=== PATIENT | female | born 1995 | race Caucasian/White ===

== ENCOUNTER 2023-11-26 07:28 | Inpatient (IN) ==
[2023-11-26] MEDS ORDERED: LIDOCAINE 1% LOCAL 20 ML VIAL INFIL PRN (07:56)
[2023-11-26] MEDS ORDERED: OXYTOCIN 30 UNITS/NSS 30 UNITS/500 ML BAG IV PRN ×2 (07:56→15:21)
[2023-11-26] MEDS ORDERED: CALCIUM CARBONATE 500 MG CHEWABLE TAB PO PRN (07:56)
[2023-11-26] MEDS: LACTATED RINGER'S 1,000 ML IV PRN (08:20)
--- NOTE | 2023-11-26 08:24 | Labor Progress Brief Note ---
Date of Service November 26, 2023 Subjective 28yo @ 41w0d for IOL due to postdates. [place] placed last night fell out at 3am. Rd uncomfortably now, breathing through. No ROM, minimal VB, good FM. Assessment & Plan (1) Post-term , 40-42 weeks of gestation: Plan: IOL, start pitocin, epidural on request (pros/cons/r/b/a discussed this AM with pt and FOB), anticipate of baby Jorge "Salvatore" Admission and Anticipated Discharge Date Admission Date: November 26, 2023 Physical Exam Genitourinary: /-1 FHT Cat 1 [place] not tracing well but clinically breathing through ~Q3-4m during discussion in room. Results & Data Vital Signs (Past 12 Hours) Vital Signs Pulse BP 11/26/23 07:38 97 H 139/87 Coding Level of Care Code None Diagnoses Post-term , 40-42 weeks of gestation O48.0
[2023-11-26 08:26] LABS: Hematocrit (blood only) 40.4 % (37.0-47.0); Hemoglobin 13.6 g/dl (12.0-16.0); Mean Corpuscular Hemoglobin 30.5 pg (25.0-34.0); Mean Corpuscular Hgb Conc 33.7 g/dL (32.0-36.0); Mean Corpuscular Volume 90.6 fL (80.0-100.0); Mean Platelet Volume 10.2 fL (9.4-12.4); Platelet Count 271 K/uL (130-400); RDW Coefficient of Variation 13.2 % (11.5-14.5); RDW Standard Deviation 43.3 fL (36.4-46.3); Red Blood Count 4.46 M/uL (4.20-5.40); White Blood Count 13.32 K/ul (4.8-10.8)
[2023-11-26] MEDS ORDERED: ONDANSETRON INJ 2 MG/ML 2 ML VIAL IV PRN (08:29)
[2023-11-26] MEDS: LIDOCAINE 2%/EPINEPHRINE 1:200,000 20 ML PF ONE (09:53)
[2023-11-26] MEDS: BUPIVACAINE 0.25% PF 30 ML VIAL ONE (09:53)
[2023-11-26] MEDS: fentANYL 2 MCG/ML BUPIVacaine 0.125%-NSS 100ML BAG ONE (09:55)
[2023-11-26] MEDS: SODIUM CHLORIDE 0.9% PF INJ 10 ML VIAL ONE (09:59)
[2023-11-26] MEDS: fentaNYL citrate PF 100 MCG/2 ML VIAL ONE (09:59)
[2023-11-26] MEDS: OXYTOCIN 30 UNITS/NSS 30 UNITS/500 ML BAG IV PRN (10:05)
--- NOTE | 2023-11-26 10:06 | Anesthesiology Consultation ---
Date of Service November 26, 2023 Assessment & Plan Chart Review Chart Review: Acceptable Risk for Labor Epidural Consults Requested none History Height/Weight Height: 5 ft 2 in Weight: 98.43 kg Allergies Allergy/AdvReac Type Severity Reaction Status Date / Time No Known Allergies Allergy Verified 11/25/23 20:16 Medications Home Medications Medication Instructions Recorded Confirmed Last Taken [id number] 1 tab PO DAILY 08/29/23 11/26/23 11/25/23 07:00 [ Plus] breast pump #1 ea 10/17/23 11/22/23 Unknown Tylenol 1,000 mg PO Q6H PRN Pain 11/26/23 11/26/23 11/25/23 22:00 Active Medications Generic Name Dose Route Start Last Admin Trade Name Freq PRN Reason Stop Dose Admin Lactated Ringer's 1,000 mls @ 125 mls/hr 11/26/23 07:56 11/26/23 08:20 Lr IV 11/28/23 07:55 999 mls/hr .Q8H PRN Administration L&D Protocol Protocol Past Medical History Medical History (Updated 11/26/23 @ 08:24 by Sita Cowan MD) Uterine fibroid seen at 20 and 28 weeks ultrasound patient reports "right where you would cut for a c/section" Varicella vaccination IBS (irritable bowel syndrome) Panic attacks Past Family History Family History Sister Asthma Seizure disorder during Mother Hypertension Father Hypertension Grandfather (Maternal) Cancer skin cancer Grandfather (Paternal) Cancer Skin cancer Denies family history of Ovarian cancer Breast cancer Colorectal cancer Past Surgical History Surgical History S/P wisdom tooth extraction Social History Smoking Status: Never smoker Do You Dip or Chew Tobacco: No Hx Alcohol Use: No Hx Substance Use: No substance use type: does not use Physical Exam Vital Signs Last Vital Signs Temp 36.7 C 11/26/23 08:00 Pulse 107 H 11/26/23 10:02 Resp 20 11/26/23 08:00 BP 111/58 L 11/26/23 09:58 Pulse Ox 95 11/26/23 10:02 Testing Laboratory Results 11/26/23 08:06
[2023-11-26] MEDS ORDERED: fentANYL 2 MCG/ML BUPIVacaine 0.125%-NSS 100ML BAG EPI PRN (10:07)
[2023-11-26] MEDS ORDERED: fentaNYL citrate PF 100 MCG/2 ML VIAL EPI PRN (10:07)
[2023-11-26] MEDS ORDERED: ROPIVACAINE 0.5% PF 5 MG/ML 20 ML VIAL EPI PRN (10:07)
[2023-11-26] MEDS ORDERED: LIDOCAINE 2% MPF LOCAL 5 ML VIAL EPI PRN (10:07)
[2023-11-26] MEDS ORDERED: NALBUPHINE HCL INJ 10 MG/ML AMP IV PRN (10:07)
[2023-11-26] MEDS ORDERED: diphenhydrAMINE 50 MG/ML VIAL IV PRN (10:07)
[2023-11-26] MEDS ORDERED: ePHEDrine sulfate 50 MG/ML AMP IV PRN (10:07)
[2023-11-26] MEDS ORDERED: BUPIVACAINE 0.25% PF 30 ML VIAL EPI PRN (10:07)
[2023-11-26] MEDS ORDERED: NALOXONE HCL 1 MG in SODIUM CHLORIDE 0.9% 1,000 ML IV PRN (10:07)
[2023-11-26] MEDS ORDERED: NALOXONE HCL 0.4 MG/1 ML VIAL/CARP IV PRN (10:07)
[2023-11-26] MEDS ORDERED: SODIUM CHLORIDE 0.9% PF INJ 10 ML VIAL EPI PRN (10:07)
[2023-11-26] MEDS: LIDOCAINE 2%/EPINEPHRINE 1:200,000 20 ML PF EPI STA (10:26)
[2023-11-26] MEDS: BUPIVACAINE 0.25% PF 30 ML VIAL EPI STA (10:26)
[2023-11-26] MEDS: fentaNYL citrate PF 100 MCG/2 ML VIAL EPI STA (10:26)
[2023-11-26] MEDS: SODIUM CHLORIDE 0.9% PF INJ 10 ML VIAL EPI STA (10:26)
--- NOTE | 2023-11-26 10:46 | Labor Progress Brief Note ---
Date of Service November 26, 2023 Subjective Comfortable with epidural. Assessment & Plan Admission and Anticipated Discharge Date Admission Date: November 26, 2023 Physical Exam Genitourinary: 4/100/-1 AROM clear fluid Vertex well applied [place] Q2-3 FHT Cat 1 Results & Data Vital Signs (Past 12 Hours) Vital Signs Temp Pulse Resp BP Pulse Ox 11/26/23 10:42 96 11/26/23 10:42 88 11/26/23 10:41 94 11/26/23 10:41 100 H 11/26/23 10:37 94 11/26/23 10:37 107 H 11/26/23 10:36 94 11/26/23 10:36 105 H 11/26/23 10:32 94 11/26/23 10:32 95 H 11/26/23 10:29 96 H 11/26/23 10:29 117/59 L 11/26/23 10:28 94 11/26/23 10:28 95 H 11/26/23 10:27 94 11/26/23 10:27 91 H 11/26/23 10:22 95 11/26/23 10:22 118 H 11/26/23 10:17 95 11/26/23 10:17 114 H 11/26/23 10:14 102 H 11/26/23 10:14 116/61 11/26/23 10:12 95 11/26/23 10:12 101 H 11/26/23 10:07 95 11/26/23 10:07 98 H 11/26/23 10:02 95 11/26/23 10:02 107 H 11/26/23 09:58 112 H 11/26/23 09:58 111/58 L 11/26/23 09:57 95 11/26/23 09:57 114 H 11/26/23 09:54 109 H 11/26/23 09:54 102/57 L 11/26/23 09:54 109 H 11/26/23 09:54 120/57 L 11/26/23 09:52 95 11/26/23 09:52 118 H 11/26/23 09:49 123 H 11/26/23 09:49 123/73 11/26/23 09:47 97 11/26/23 09:47 110 H 11/26/23 09:43 88 11/26/23 09:43 133/85 11/26/23 09:42 96 11/26/23 09:42 103 H 11/26/23 09:37 96 11/26/23 09:37 100 H 11/26/23 09:32 95 11/26/23 09:32 91 H 11/26/23 09:29 94 11/26/23 09:29 91 H 11/26/23 09:27 96 11/26/23 09:27 99 H 11/26/23 09:22 95 11/26/23 09:22 98 H 11/26/23 09:17 95 11/26/23 09:17 108 H 11/26/23 09:12 96 11/26/23 09:12 95 H 11/26/23 08:00 98.1 F 97 H 20 139/87 11/26/23 07:38 97 H 139/87 11/26/23 07:37 20 11/26/23 07:37 98.1 F 20 Coding Level of Care Code None
[2023-11-26] MEDS: NURSING L&D Epidural Breakthrough Pain Update ONE (12:25)
--- NOTE | 2023-11-26 14:21 | Labor Progress Brief Note ---
Date of Service November 26, 2023 Subjective Feeling pain / pressure despite epidural. Assessment & Plan Admission and Anticipated Discharge Date Admission Date: November 26, 2023 Physical Exam Genitourinary: 10/100/+1 with bloody show FHT Cat 1 [place] Q2min Plan: Begin second stage. Results & Data Vital Signs (Past 12 Hours) Vital Signs Temp Pulse Resp BP Pulse Ox 11/26/23 14:17 96 11/26/23 14:17 125 H 11/26/23 14:14 86 11/26/23 14:14 132/81 11/26/23 14:12 96 11/26/23 14:12 89 11/26/23 14:07 96 11/26/23 14:07 90 11/26/23 14:02 96 11/26/23 14:02 91 H 11/26/23 14:00 92 H 11/26/23 14:00 147/92 H 11/26/23 13:57 96 11/26/23 13:57 95 H 11/26/23 13:52 96 11/26/23 13:52 91 H 11/26/23 13:47 96 11/26/23 13:47 90 11/26/23 13:45 89 11/26/23 13:45 145/88 H 11/26/23 13:42 96 11/26/23 13:42 90 11/26/23 13:37 95 11/26/23 13:37 99 H 11/26/23 13:32 96 11/26/23 13:32 94 H 11/26/23 13:29 88 11/26/23 13:29 156/87 H 11/26/23 13:27 95 11/26/23 13:27 99 H 11/26/23 13:24 92 H 11/26/23 13:24 139/70 11/26/23 13:22 95 11/26/23 13:22 98 H 11/26/23 13:17 95 11/26/23 13:17 89 11/26/23 13:14 110 H 11/26/23 13:14 165/81 H 11/26/23 13:12 96 11/26/23 13:12 85 11/26/23 13:07 94 11/26/23 13:07 103 H 11/26/23 13:02 95 11/26/23 13:02 100 H 11/26/23 12:59 92 H 11/26/23 12:59 130/75 11/26/23 12:57 94 11/26/23 12:57 87 11/26/23 12:52 95 11/26/23 12:52 98 H 11/26/23 12:47 95 11/26/23 12:47 97 H 11/26/23 12:44 108 H 11/26/23 12:44 130/69 11/26/23 12:42 95 11/26/23 12:42 90 11/26/23 12:37 94 11/26/23 12:37 98 H 11/26/23 12:32 94 11/26/23 12:32 96 H 11/26/23 12:30 90 11/26/23 12:30 123/71 11/26/23 12:27 94 11/26/23 12:27 90 11/26/23 12:22 95 11/26/23 12:22 93 H 11/26/23 12:17 94 11/26/23 12:17 110 H 11/26/23 12:14 86 11/26/23 12:14 131/80 11/26/23 12:13 18 11/26/23 12:13 98.1 F 18 11/26/23 12:12 94 11/26/23 12:12 94 H 11/26/23 12:07 92 11/26/23 12:07 95 H 11/26/23 12:05 94 11/26/23 12:05 98 H 11/26/23 12:02 93 11/26/23 12:02 86 11/26/23 11:59 85 11/26/23 11:59 121/79 11/26/23 11:57 91 11/26/23 11:57 89 11/26/23 11:52 92 11/26/23 11:52 90 11/26/23 11:47 91 11/26/23 11:47 103 H 11/26/23 11:45 86 11/26/23 11:45 121/74 11/26/23 11:42 93 11/26/23 11:42 86 11/26/23 11:37 93 11/26/23 11:37 88 11/26/23 11:32 92 11/26/23 11:32 85 11/26/23 11:31 94 11/26/23 11:31 83 11/26/23 11:30 79 11/26/23 11:30 125/62 11/26/23 11:27 93 11/26/23 11:27 90 11/26/23 11:22 93 11/26/23 11:22 89 11/26/23 11:17 93 11/26/23 11:17 94 H 11/26/23 11:14 90 11/26/23 11:14 116/59 L 11/26/23 11:12 93 11/26/23 11:12 97 H 11/26/23 11:11 93 11/26/23 11:11 99 H 11/26/23 11:07 93 11/26/23 11:07 82 11/26/23 11:02 94 11/26/23 11:02 96 H 11/26/23 11:00 93 11/26/23 11:00 99 H 11/26/23 10:59 16 11/26/23 10:59 97.9 F 16 11/26/23 10:59 105 H 11/26/23 10:59 124/59 L 11/26/23 10:57 94 11/26/23 10:57 90 11/26/23 10:54 94 11/26/23 10:54 94 H 11/26/23 10:52 95 11/26/23 10:52 95 H 11/26/23 10:48 94 11/26/23 10:48 89 11/26/23 10:48 117/61 11/26/23 10:47 95 11/26/23 10:47 98 H 11/26/23 10:42 96 11/26/23 10:42 88 11/26/23 10:41 94 11/26/23 10:41 100 H 11/26/23 10:37 94 11/26/23 10:37 107 H 11/26/23 10:36 94 11/26/23 10:36 105 H 11/26/23 10:32 94 11/26/23 10:32 95 H 11/26/23 10:29 96 H 11/26/23 10:29 117/59 L 11/26/23 10:28 94 11/26/23 10:28 95 H 11/26/23 10:27 94 11/26/23 10:27 91 H 11/26/23 10:22 95 11/26/23 10:22 118 H 11/26/23 10:17 95 11/26/23 10:17 114 H 11/26/23 10:14 102 H 11/26/23 10:14 116/61 11/26/23 10:12 95 11/26/23 10:12 101 H 11/26/23 10:07 95 11/26/23 10:07 98 H 11/26/23 10:02 95 11/26/23 10:02 107 H 11/26/23 09:58 112 H 11/26/23 09:58 111/58 L 11/26/23 09:57 95 11/26/23 09:57 114 H 11/26/23 09:54 109 H 11/26/23 09:54 102/57 L 11/26/23 09:54 109 H 11/26/23 09:54 120/57 L 11/26/23 09:52 95 11/26/23 09:52 118 H 11/26/23 09:49 123 H 11/26/23 09:49 123/73 11/26/23 09:47 97 11/26/23 09:47 110 H 11/26/23 09:43 88 11/26/23 09:43 133/85 11/26/23 09:42 96 11/26/23 09:42 103 H 11/26/23 09:37 96 11/26/23 09:37 100 H 11/26/23 09:32 95 11/26/23 09:32 91 H 11/26/23 09:29 94 11/26/23 09:29 91 H 11/26/23 09:27 96 11/26/23 09:27 99 H 11/26/23 09:22 95 11/26/23 09:22 98 H 11/26/23 09:17 95 11/26/23 09:17 108 H 11/26/23 09:12 96 11/26/23 09:12 95 H 11/26/23 08:00 98.1 F 97 H 20 139/87 11/26/23 07:38 97 H 139/87 11/26/23 07:37 20 11/26/23 07:37 98.1 F 20 Coding Level of Care Code None
--- NOTE | 2023-11-26 15:06 | Delivery Summary ---
Vaginal Delivery Summary Date of Service November 26, 2023 Vaginal Delivery Summary DIAGNOSES: 1. Ramirez intrauterine at 41wk gestation. 2. Induction of labor. 3. Group B Streptococcus Neg. PROCEDURE: Spontaneous vaginal delivery and repair of second degree laceration. SURGEON: Sita Cowan MD. GRID INSPECTOR: None. QUANTITATIVE BLOOD LOSS: 425 mL. COMPLICATIONS: None. PLACENTA: Spontaneous and intact with a 3-vessel cord. DISPOSITION: Stable to labor and delivery. DESCRIPTION: The patient pushed well and brought the head to in [place] position. The infant's head was allowed to deliver with contraction force and no further active pushing, with the perineum protected during this time. There was no nuchal cord. The left shoulder was anterior. The shoulders and body delivered without any difficulty, and the infant was placed on the maternal abdomen. It was vigorous and moving all extremities, and making respiratory efforts. The cord was doubly clamped by the MD and then cut by the FOB. The placenta delivered spontaneously and was noted to be intact and with a 3VC. The cervix, vagina and perineum were examined and were found to have a second degree laceration that was repaired in the usual manner with vicryl suture including a crown stitch to rebuild the perineal body. The fundus was firm and lochia minimal immediately after delivery. [facility] Vaginal Delivery Charge Vaginal Delivery Codes: 98949 global code for the antepartum, delivery, and post-
[2023-11-26] MEDS: ACETAMINOPHEN 500 MG TAB PO PRN (15:15)
[2023-11-26] MEDS ORDERED: bisacodyL 10 MG SUPP PR PRN (15:21)
[2023-11-26] MEDS ORDERED: HYDROCORTISONE ACETATE 25 MG SUPP PR PRN (15:21)
[2023-11-26] MEDS ORDERED: oxyCODONE/ACETAMINOPHEN 5mg/325mg TAB PO PRN (15:21)
--- NOTE | 2023-11-26 16:18 | Anesthesia Procedure Note ---
Date of Service November 26, 2023 Anesthesia Post Epidural Note Vital Signs Vital Signs: Temp Pulse Resp BP Pulse Ox 36.7 C 129 H 18 119/71 96 11/26/23 12:13 11/26/23 16:14 11/26/23 12:13 11/26/23 16:14 11/26/23 15:22 Notes Mental Status: alert / awake / arousable Nausea / Vomiting: adequately controlled Pain: adequately controlled Airway Patency, RR, SpO2: stable & adequate BP & HR: stable & adequate Hydration State: stable & adequate Neuraxial Anesthesia: was administered and sensory block is resolving Anesthetic Complications: no major complications apparent and Pt Satisfied with anesthetic care Epidural: Removed without complications and With tip intact
[2023-11-26] MEDS: DIPHTHER/TETAN/PERTUS Vaccine (Tdap, Adol/Adult) 0.5mL IM ONE (17:27)
[2023-11-26] MEDS: BENZOCAINE 20% SPRY 85 APPLN/85 GM CAN EXT PRN (17:27)
[2023-11-26] MEDS: ePHEDrine sulfate 50 MG/ML AMP ONE (17:48)
[2023-11-26] MEDS: ONDANSETRON INJ 2 MG/ML 2 ML VIAL IV STA (18:23)
[2023-11-26 18:49] LABS: Hematocrit (blood only) 32.5 % (37.0-47.0); Hemoglobin 11.3 g/dl (12.0-16.0)
[2023-11-26] MEDS: IBUPROFEN 600 MG TAB PO PRN (20:46)
[2023-11-26] MEDS: DOCUSATE SODIUM 100 MG CAP PO SCH (20:47)
[2023-11-27] MEDS: ACETAMINOPHEN 325 MG TAB PO PRN (01:00)
--- NOTE | 2023-11-27 05:53 | Obstetrical Progress Note ---
Date of Service November 27, 2023 Assessment & Plan (1) Encounter for supervision of normal : Plan Pt is 28 yo post- day 1 s/p Feel well today. Vital signs are stable Continue Post care Encourage ambulation Order consult for assistance with breast feeding Pain control with ibuprofen Hgb is stable Discharge home 11/28/23, follow up with Dr. Cowan in 6 weeks. Admission and Anticipated Discharge Date Admission Date: November 26, 2023 Supervising Physician Co-Signing Physician Notes Resident Physician Supervision Note: I interviewed and examined the patient. Discussed with [ ] and agree with findings and plan as documented in the note. Any exceptions or clarifications are listed here: [ ] Documented By: Sita Cowan MD, FACOG Subjective Pt is 28 yo post- day 1 s/p Ambulation: short distances in room Voiding: mild burning when voiding without use of water bottle Passing gas: yes BM: No Diet tolerance: primarily liquids since lunch 11/24. Denies N/V since baby was born Lochia: bloody, no clots Feeding type: breast feeding. Pt reporting difficulty with baby staying latched. Current pain level: 3/10 controlled with ibuprofen Resting comfortably this morning in NAD. Denies CISNEROS, CP, SOB, N/V/D, LE pain/swelling. Review of Systems Review of Systems: As per HPI Physical Exam Constitutional: WD/WN, vitals as above Eyes: PERRL, conjunctivae normal, anicteric sclerae Respiratory: normal respiratory effort, lungs clear to auscultation Cardiovascular: Rate/Rhythm: regular rate and regular rhythm Heart Sounds: normal S1 and normal S2; no murmur Trace edema at bilateral ankles. No pitting Gastrointestinal (Abdomen): normal bowel sounds, soft, nontender, no hepatosplenomegaly Uterine fundus firm at umbilicus Skin: no rashes, warm and dry Neurologic: moves all extremities and awake; no focal motor deficits Speech / Cognition: normal speech Psychiatric: Orientation: oriented x 3 Results & Data Vital Signs (Past 12 Hours) Vital Signs Temp Pulse Resp BP Pulse Ox O2 Del Method 11/27/23 00:45 36.9 C 86 18 108/70 95 Room Air 11/26/23 19:15 36.8 C 98 H 16 124/77 99 Room Air
[2023-11-27 06:24] LABS: Hemoglobin 10.6 g/dl (12.0-16.0); Mean Corpuscular Hemoglobin 30.8 pg (25.0-34.0); Mean Corpuscular Hgb Conc 33.1 g/dL (32.0-36.0); Mean Platelet Volume 10.4 fL (9.4-12.4); Platelet Count 228 K/uL (130-400); RDW Coefficient of Variation 13.5 % (11.5-14.5); RDW Standard Deviation 45.4 fL (36.4-46.3); Red Blood Count 3.44 M/uL (4.20-5.40); White Blood Count 14.01 K/ul (4.8-10.8)
[2023-11-27] MEDS: PRENATAL VITAMIN 1 TAB PO SCH (07:36)
[2023-11-27] MEDS: bisacodyL 5 MG TABEC PO SCH (20:21)
--- NOTE | 2023-11-28 06:09 | Obstetrical Progress Note ---
Date of Service November 28, 2023 Assessment & Plan (1) Encounter for supervision of normal : Plan Pt is 28 yo post- day 2 s/p Feel well today. Vital signs are stable.Hgb is 9.9. Pt denies dizziness, SOB, or weakness Encourage ambulation and breast feeding Pain control with ibuprofen 600mg PRN Discharge home, follow up with Dr. Cowan in 6 weeks. Admission and Anticipated Discharge Date Admission Date: November 26, 2023 Supervising Physician Co-Signing Physician Notes Resident Physician Supervision Note: I interviewed and examined the patient. Discussed with Dr. Ye and agree with findings and plan as documented in the note. Any exceptions or clarifications are listed here: [None] Documented By: Shona Garcia MD, FACOG Subjective Pt is 28 yo without complications post- day 2 s/p at 40w6d Ambulation: distances in and out of room Voiding: voiding normally Passing gas: yes BM: No Diet tolerance: regular Lochia: bloody, no clots Feeding type: breast feeding. Met with x ray consultant yesterday Current pain level: 0-5/10 controlled with ibuprofen Resting comfortably this morning in NAD. Denies CP, SOB, N/V/D, LE pain/swelling. Endorses CISNEROS, relieved with ibuprofen Review of Systems Review of Systems: As per HPI Physical Exam Constitutional: WD/WN, vitals as above Eyes: PERRL, conjunctivae normal, anicteric sclerae Respiratory: normal respiratory effort, lungs clear to auscultation Cardiovascular: RRR, no murmur, no edema Rate/Rhythm: regular rate and regular rhythm Heart Sounds: normal S1 and normal S2; no murmur Gastrointestinal (Abdomen): normal bowel sounds, soft, nontender, no hepatosplenomegaly (Uterine fundus firm and 1 cm below umbilicus) Skin: no rashes, warm and dry Neurologic: moves all extremities and awake; no focal motor deficits Speech / Cognition: normal speech Psychiatric: Orientation: oriented x 3 Results & Data Vital Signs (Past 12 Hours) Vital Signs Temp Pulse Resp BP Pulse Ox O2 Del Method 11/27/23 23:17 36.8 C 16 112/69 11/27/23 20:15 36.7 C 118 H 18 116/74 96 Room Air Laboratory Results Abnormal lab results 11/28/23 Range/Units 07:27 Hgb 9.9 L (12.0-16.0) g/dl Hct 29.3 L (37.0-47.0) % Resident Activity Tracking Resident Involvement: Resident Care Provided Care Provided: Adult [facility] Medicine
[2023-11-28 07:50] LABS: Hematocrit (blood only) 29.3 % (37.0-47.0); Hemoglobin 9.9 g/dl (12.0-16.0)
[2023-11-28 09:53] VITALS: BP 110/75; PULSE 105; RESP 20; TEMP 98.4; O2SAT 97
== END 2023-11-28 15:50 | disposition home or self-care (01) | DRG 807 ==
LOC: 4S1 07:28 → 4E2 17:45